=== PATIENT | female | born 1980 | race Caucasian/White ===

== ENCOUNTER → 2019-03-13 | Outpatient (REF) | payer OTHER, SELFPAY ==
[2019-03-13 23:20] LABS: CHLAMYDIA DNA AMPLIFICATION NEGATIVE (NEGATIVE); GC DNA AMPLIFICATION NEGATIVE (NEGATIVE)
== END ==
LOC: M SFHCLERA 13:35
PROVIDERS: ATTEND Nurse Practitioner Family
DX: R30.0 Dysuria (principal)
CPT/HCPCS: 81002; 81025; 87086; 87661; G0463